=== PATIENT | female | born 1980 | race Caucasian/White ===

== ENCOUNTER 2017-02-01 06:07 | Inpatient (IN) | payer OTHER ==
--- NOTE | ~2017-02-01 | HP ---
History And Physical [address] [place]. [address] NAME: FRANCOISE TIDWELL : 80 STATUS : ADM IN [facility]#: [id number] AGE: 36 ADM/REG DATE : 02/01/17 MR#: [id number] REPORT SERV DATE: 02/01/17 DICTATED BY: DATE: REPORT STATUS : Draft TRANSCRIBED BY: MODL DATE: 02/01/17 DATE OF ADMISSION: 02/01/2017 CHIEF COMPLAINT: Abdominal pain. HISTORY OF PRESENT ILLNESS: Ms. Tidwell is a pleasant 36-year-old female who developed severe, sharp left upper quadrant abdominal pain four days ago with associated nausea and vomiting. The pain is sharp, constant, and radiates from her left upper quadrant of the abdomen to her back. The patient has a significant medical history of multiple UTIs in the past; however, she reports not having UTI in at least a year. She does not have symptoms of frequency, urgency, dysuria, hematuria. Now, she does report having a fever with a temp max of 102. Now, she has been taking Tylenol which has helped with her fevers. Now, she has been unable to take p.o. in the last several days due to nausea and vomiting including her antidiabetic medications. She is a dsh-hdjzhgh-punbwqfbk diabetic. She takes Victoza and metformin at home. Her blood glucose was 335 at [facility] prior to transfer. She had a CT of the abdomen and pelvis at [facility], which demonstrated enlargement of the left kidney with asymmetric enhancement of the superior pole of the left with associated inflammatory changes suggestive of underlying pyelonephritis with suspicions for probable intrarenal abscess/lobar nephronia. This area measures approximately 6 cm. MEDICAL HISTORY: Includes noninsulin-dependent diabetes mellitus, depression, and hypertension. SURGICAL HISTORY: Includes L4-L5 diskectomy in 2006. SOCIAL HISTORY: The patient denies tobacco, alcohol, and illicit drug use. 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 She is and lives with her spouse and has 3 children, 20, 18, 14, and a 2-year-old granddaughter. ALLERGIES: THE PATIENT HAS NO KNOWN DRUG ALLERGIES. HOME MEDICATIONS: Include: 1. Benazepril 10 mg daily. 2. Effexor XR 75 mg b.i.d. 3. Gabapentin 300 mg t.i.d. 4. Metformin 500 mg p.o. daily. 5. Victoza 18 mg/3 mL one unit subcu daily. 6. Vistaril 50 mg p.o. at bedtime. REVIEW OF SYSTEMS: A 10-point review of systems was performed. All pertinent positives are noted above in the HPI. Otherwise, negative. PHYSICAL EXAMINATION: GENERAL: The patient reports fevers and chills at home with a temp max of 102 and at this History And Physical [address] [address] NAME: FRANCOISE TIDWELL : 80 STATUS : ADM IN PAT#: [id number] AGE: 36 ADM/REG DATE : 02/01/17 MR#: [id number] REPORT SERV DATE: 02/01/17 DICTATED BY: DATE: REPORT STATUS : Draft TRANSCRIBED BY: MODL DATE: 02/01/17 time, she appears nontoxic. However, she is in significant pain. NEURO: She is alert and oriented x4. Cranial nerves 2 through 12 are grossly intact. Able to follow commands. CV: S1 and S2 present. Regular rate and rhythm. No murmurs, rubs, or thrills noted. PMI is nondisplaced. LUNGS: Clear throughout all lung valenzuela. Respirations are within normal limits. ABDOMEN: Soft, tender in the left upper quadrant to palpation. Bowel sounds are present. The patient reports last bowel movement yesterday which was formed. : No costovertebral angle tenderness was noted surprisingly. EXTREMITIES: Peripheral pulses present. Edema is absent. ASSESSMENT AND PLAN: 1. Left renal abscess/pyelonephritis. As mentioned above on the CT scan performed at [facility], it was noted the patient had a possible abscess. We will consult Interventional Radiology for review of images and possible drainage of the said abscess. She was given ceftriaxone at [facility]. Upon arrival here, my colleague Dr. Wong started the patient on cefepime IV, which I will continue considering the patient has a history of multiple urinary tract infections with Escherichia coli and some drug resistance. 2. Abdominal pain. I will order p.r.n. pain medications including Dilaudid IV. The patient is unable to tolerate p.o. due to nausea and vomiting. 3. Noninsulin-dependent diabetes mellitus. We will monitor blood sugars q.a.c. and at bedtime. I will place the patient on sliding scale level 2, and I will hold her metformin at this time. I will continue her Victoza. 4. Nausea and vomiting. Aborted p.r.n. medications as the Phenergan and Zofran are ineffective. 5. Sepsis due to pyelonephritis/left renal abscess. Her white blood cell count at [facility] was 18.8, is down to 8 now after several doses of antibiotics. They did perform blood cultures at [facility]; I will repeat them here. I will also get a procalcitonin level. Patient's lactate was 8.9. CO2 was 15. Anion gap of 24.5. Her UA was negative for a urinary tract infection surprisingly. If Interventional Radiology does perform drainage of the left renal abscess, we will culture the drainage to narrow antibiotics if needed. Also, I will follow blood cultures for optimal antibiotic management. 6. Hypertension. Patient's blood pressure was 132/73; we will watch this. She is not currently on medications at home for this. 7. Depression. I will continue her Effexor p.o. The patient's primary care provider is Annie Stearns, nurse practitioner, at [facility]. After discharge, we will send records to her. BREANNA/ADIN Dexter Brewer NP History And Physical [address] [address] NAME: FRANCOISE TIDWELL : 80 STATUS : ADM IN PAT#: [id number] AGE: 36 ADM/REG DATE : 02/01/17 MR#: [id number] REPORT SERV DATE: 02/01/17 DICTATED BY: DATE: REPORT STATUS : Draft TRANSCRIBED BY: ADIN DATE: 02/01/17 / [id number] CC: MD SPENCER Pierce RUTH Hany A. Naggar, MD
--- NOTE | ~2017-02-01 | DS ---
Discharge Summary [facility] [address] [place]. [address] NAME: FRANCOISE CLEMENS : 80 STATUS : DIS IN PAT#: [id number] AGE: 36 ADM/REG DATE : 02/01/17 MR#: [id number] REPORT SERV DATE: 02/06/17 DICTATED BY: FRANK BRANNON DATE: 02/05/17 REPORT STATUS : Draft TRANSCRIBED BY: MODL DATE: 02/05/17 ADMISSION DATE: 02/01/2017 DISCHARGE DATE: 02/05/2017 The patient is a 36-year-old female with a history of hypertension and diabetes who presented to the hospital with abdominal pain. For further details, please refer to H and P dictated on 02/01/2017. HOSPITAL COURSE: The patient initially presented to [facility] where CT of the abdomen and pelvis was performed. There was concern for pyelonephritis versus renal abscess. Given this finding, the patient was transferred to [facility] for further management. Upon presentation to the hospital, the patient met sepsis criteria, its likely source being her kidneys. She was empirically started on broad-spectrum antibiotics and the medications under Hospitalist Service for further management. Her pain was controlled with medication. The patient has responded well to therapy. Her sepsis eventually resolved, and her pain progressively improved. Her medication was deescalated to p.o. Levaquin which the patient has tolerated with normalization of her white blood cell count. Also, while in the hospital, the patient was noted to have hypertension. Given her history of diabetes, she was placed on an STIVEN inhibitor with good blood pressure control. For her diabetes, her A1c was checked which was noted to be 10.8, so oral anti-hyperglycemics were discontinued. The patient was started with insulin both basal and short-acting. Her insulin regimen has been up titrated with some improvement, however, adequate blood glucose control has not been achieved. Given that the patient is in the hospital, it is unclear if the patient is obtaining meals from outside which could be the reason why her blood sugar is not well controlled at this time. Given that she is new to insulin, we will hold off on increasing insulin dose at this point. Consult Diabetic Education to assist in terms of diet and lifestyle modification and assist in conjunction with medication management. I will have the patient follow up with her primary care physician for further titration in insulin. Also, back to her pyelonephritis, given the concern for abscess that was noted at imaging at [facility], after consultation with Radiology, it was agreed that CT abdomen and pelvis be obtained again to ensure that there was no abscess that needed to be drained. The patient is status post repeat CT scan with no abscesses noted. Given her hemodynamic stability with resolution of her presenting complaints, the patient will be discharged today after diabetic education. Plan has been discussed with the patient, who voices understanding and is agreeable with this plan. Given the patient's resolution of presenting complaint and hemodynamic stability, the patient will be discharged to follow up primary care physician. Plan has been discussed with the patient, who voices understanding and is agreeable with this plan. DISCHARGE DIAGNOSES: 1. Pyelonephritis. 2. Diabetes type 2. 3. Hypertension. 4. Hypokalemia. 5. Sepsis. 6. Obesity. Discharge Summary [address] [address] NAME: FRANCOISE CLEMENS : 80 STATUS : DIS IN [facility]#: [id number] AGE: 36 ADM/REG DATE : 02/01/17 MR#: [id number] REPORT SERV DATE: 02/06/17 DICTATED BY: FRANK BRANNON DATE: 02/05/17 REPORT STATUS : Draft TRANSCRIBED BY: ADIN DATE: 02/05/17 7. Depression. DISCHARGE EXAMINATION: VITAL SIGNS: Blood pressure 128/80 with a pulse of 85, respiration 18, O2 saturation 97% on room air. GENERAL: The patient lying in bed, in no acute distress. Appears stated age. HEENT: Normocephalic, atraumatic. Extraocular motors intact. Moist oral mucosa. Pupils round and reactive to light and accommodation. Anicteric sclerae. No conjunctival injection. NECK: Trachea midline and symmetric. No JVD noted. No thyromegaly present. No lymphadenopathy noted. CHEST: No scars noted. Nontender to palpation. CARDIOVASCULAR: Regular rate and rhythm. S1, S2. No murmurs, rubs, or gallops. LUNGS: Clear to auscultation bilaterally. No wheezing, rales, or rhonchi. ABDOMEN: Obese. Positive bowel sounds. Mild tenderness noted on the left lower quadrant. Nondistended. EXTREMITIES: No cyanosis, no clubbing, no edema. NEUROLOGIC: Alert and oriented x3. No focal deficits appreciated. DISCHARGE MEDICATIONS: Gabapentin 300 mg p.o. three times a day, NovoLog 12 units subcu premeals b.i.d., lisinopril 20 mg p.o. daily, Effexor 75 mg p.o. with breakfast, hydroxyzine 50 mg to 100 mg p.o. at bedtime, Levemir 30 units subcu twice a day. IMAGING: CT abdomen and pelvis without contrast. Impression: This noncontrast CT scan findings are again consistent with underlying pyelonephritis. There is also a nonobstructing kidney stone. There are no large changes on this noncontrasted study to suggest any evidence for a drainable intraparenchymal or perirenal abscess at this time. DISPOSITION: The patient will be discharged to home to follow up with primary care physician in five to seven days. ACTIVITY: As tolerated. DIET: Diabetic diet. Greater than 30 minutes was spent coordinating care, discussing care with nurse, providing counseling, dictation of note, medication reconciliation, and writing prescription. PATRICIA/ADIN Frank Brannon MD / [id number] CC: Discharge Summary [address] [address] NAME: FRANCOISE CLEMENS : 80 STATUS : DIS IN PAT#: [id number] AGE: 36 ADM/REG DATE : 02/01/17 MR#: [id number] REPORT SERV DATE: 02/06/17 DICTATED BY: FRANK BRANNON DATE: 02/05/17 REPORT STATUS : Draft TRANSCRIBED BY: MODL DATE: 02/05/17 MD SPENCER Lopes RUTH
[~2017-02-01 06:07] MED LIST: CIP5; CIP5 PO; DIL2TAB PO; ENDOCET1 TAB PO; FLOMAX4 PO; GLUCOPHXR7 PO; GLUCPH PO; LEXAPRO20 PO; LIPITOR10 PO; LOTE10 PO; LOTE20 PO; MINIPRESS 1 MG C1 MG PO; NORCO1 TA1 PO; PARAFON FORTE500 MG OR; PR25; ZOCOR20 PO
[2017-02-01 06:47] LABS: BASOPHILS 0.4 %; BASOPHILS ABSOLUTE 0.03 10/3/uL (0.0-0.16); EOSINOPHILS 1.7 %; EOSINOPHILS ABSOLUTE 0.14 10/3/uL (0.0-0.53); HEMATOCRIT 37.5 % (36.0-48.0); HEMOGLOBIN 12.9 g/dL (12.0-16.0); IMMATURE GRANULOCYTES 0.4 %; IMMATURE GRANULOCYTES ABSOLUTE 0.03 10/3/uL (0.0-0.11); LYMPHOCYTES 34.4 %; LYMPHOCYTES ABSOLUTE 2.76 10/3/uL (0.67-4.30); MEAN CORPUS HGB CONC 34.4 g/dL (32.0-36.0); MEAN CORPUSCULAR HEMOGLOB 32.4 pg (26.0-34.0); MEAN PLATELET VOLUME 10.8 fL (9.2-13.0); MONOCYTES 8.4 %; MONOCYTES ABSOLUTE 0.67 10/3/uL (0.21-1.20); NEUTROPHILS 54.7 %; NEUTROPHILS ABSOLUTE 4.39 10/3/uL (2.02-8.40); RBC DISTRIBUTION WIDTH 12.5 % (12.0-16.0); RED CELL COUNT 3.98 10/6/uL (4.0-5.6)
[2017-02-01 06:50] LABS: MANUAL DIFF NO %; MEAN CORPUSCULAR VOLUME 94.2 fL (80-100); PLATELET COUNT 187 10/3/uL (150-400)
[2017-02-01 07:39] LABS: ALKALINE PHOSPHATASE 128 U/L (45-117); BUN (BLOOD UREA NITROGEN) 10 MG/DL (6-23); CALCIUM, SERUM 9.2 MG/DL (8.5-10.4); CHLORIDE, SERUM 106 MMOL/L (96-112); CO2 (CARBON DIOXIDE) 16 MMOL/L (24-34); CREATININE 0.82 MG/DL (0.55-1.02); GFR AFRICAN AMERICAN 107 ML/MIN (>=60); GFR NON AFRICAN AMERICAN 92 ML/MIN (>=60); GLUCOSE, SERUM 280 MG/DL (60-99); POTASSIUM, SERUM 3.8 MMOL/L (3.5-5.3); SGOT(AST) 14 U/L (5-40); SGPT(ALT) 21 U/L (5-65); SODIUM, SERUM 137 MMOL/L (135-148); TOTAL BILIRUBIN 0.4 MG/DL (0-1.2); TOTAL PROTEIN 8.1 G/DL (6.0-8.5)
[2017-02-01 08:01] LABS: A/G RATIO 0.5 (0.7-1.9); ALBUMIN 2.8 G/DL (3.5-5.0); GLOBULIN 5.3 G/DL (2.5-4.1)
[2017-02-01] MEDS ORDERED: EFFEXXR75 PO (11:07)
[2017-02-01] MEDS ORDERED: GLUCPH PO (11:07)
[2017-02-01] MEDS ORDERED: LOTE10 PO (11:07)
[2017-02-01] MEDS ORDERED: VIST50 PO (11:07)
[2017-02-01] MEDS ORDERED: NEUR300 PO (11:07)
[2017-02-01] MEDS ORDERED: ACET500CAP PO (11:08)
[2017-02-01] MEDS ORDERED: VICTOZA18 MG/3 ML SC (11:08)
[2017-02-01 11:28] LABS: INTERNATIONAL NORMAL RATI 1.4 UNITS (-); PARTIAL THROMBO TIME 38.2 SEC (22.5-37.2); PROTIME (NOT ORD) 16.6 SEC (12.0-14.5)
[2017-02-01 11:34] LABS: PHOSPHORUS, SERUM 2.5 MG/DL (2.5-4.5)
[2017-02-01 12:00] LABS: PROCALCITONIN 0.98 ng/mL (<0.5)
[2017-02-01 19:01] LABS: ASCORBIC ACID (UR NOT ORDER) NEG (NEG); BILIRUBIN, URINE NEGATIVE (NEG); KETONE, URINE 80 MG/DL (NEG); LEUKOCYTE ESTERASE(NOT OR TRACE (NEG); WBC (NOT ORDERED) (RFLEX) 5 (0-5)
[2017-02-02 05:52] LABS: BASOPHILS 0.3 %; BASOPHILS ABSOLUTE 0.04 10/3/uL (0.0-0.16); EOSINOPHILS 0.2 %; EOSINOPHILS ABSOLUTE 0.03 10/3/uL (0.0-0.53); HEMOGLOBIN 11.1 g/dL (12.0-16.0); IMMATURE GRANULOCYTES 0.9 %; IMMATURE GRANULOCYTES ABSOLUTE 0.12 10/3/uL (0.0-0.11); LYMPHOCYTES 15.6 %; LYMPHOCYTES ABSOLUTE 2.13 10/3/uL (0.67-4.30); MEAN CORPUS HGB CONC 33.3 g/dL (32.0-36.0); MEAN CORPUSCULAR HEMOGLOB 30.3 pg (26.0-34.0); MEAN PLATELET VOLUME 9.5 fL (9.2-13.0); MONOCYTES ABSOLUTE 1.78 10/3/uL (0.21-1.20); NEUTROPHILS ABSOLUTE 9.55 10/3/uL (2.02-8.40); RBC DISTRIBUTION WIDTH 12.1 % (12.0-16.0); RED CELL COUNT 3.66 10/6/uL (4.0-5.6)
[2017-02-02 06:00] LABS: HEMATOCRIT 33.3 % (36.0-48.0); WHITE BLOOD CELLS 13.7 10/3/uL (4.5-10.5)
[2017-02-02 06:01] LABS: MANUAL DIFF NO %; PLATELET COUNT 365 10/3/uL (150-400)
[2017-02-02 06:11] LABS: CALCIUM, SERUM 8.5 MG/DL (8.5-10.4); CHLORIDE, SERUM 105 MMOL/L (96-112); CREATININE 0.71 MG/DL (0.55-1.02); GFR AFRICAN AMERICAN 127 ML/MIN (>=60); GFR NON AFRICAN AMERICAN 110 ML/MIN (>=60); GLUCOSE, SERUM 265 MG/DL (60-99); PHOSPHORUS, SERUM 1.8 MG/DL (2.5-4.5); POTASSIUM, SERUM 3.7 MMOL/L (3.5-5.3); SODIUM, SERUM 137 MMOL/L (135-148)
[2017-02-02 06:21] LABS: BUN (BLOOD UREA NITROGEN) 6 MG/DL (6-23); CO2 (CARBON DIOXIDE) 16 MMOL/L (24-34)
[2017-02-03 06:02] LABS: A/G RATIO 0.4 (0.7-1.9); ALKALINE PHOSPHATASE 131 U/L (45-117); BUN (BLOOD UREA NITROGEN) 5 MG/DL (6-23); CALCIUM, SERUM 8.8 MG/DL (8.5-10.4); CHLORIDE, SERUM 102 MMOL/L (96-112); CREATININE 0.68 MG/DL (0.55-1.02); GFR AFRICAN AMERICAN 130 ML/MIN (>=60); GFR NON AFRICAN AMERICAN 113 ML/MIN (>=60); GLOBULIN 4.9 G/DL (2.5-4.1); GLUCOSE, SERUM 284 MG/DL (60-99); POTASSIUM, SERUM 3.3 MMOL/L (3.5-5.3); SGOT(AST) 34 U/L (5-40); SGPT(ALT) 40 U/L (5-65); SODIUM, SERUM 137 MMOL/L (135-148); TOTAL BILIRUBIN 0.2 MG/DL (0-1.2); TOTAL PROTEIN 7.1 G/DL (6.0-8.5)
[2017-02-03 06:03] LABS: ALBUMIN 2.2 G/DL (3.5-5.0); BASOPHILS 0.4 %; BASOPHILS ABSOLUTE 0.04 10/3/uL (0.0-0.16); CO2 (CARBON DIOXIDE) 24 MMOL/L (24-34); EOSINOPHILS 0.9 %; HEMOGLOBIN 11.2 g/dL (12.0-16.0); IMMATURE GRANULOCYTES 2.3 %; IMMATURE GRANULOCYTES ABSOLUTE 0.25 10/3/uL (0.0-0.11); LYMPHOCYTES 26.6 %; LYMPHOCYTES ABSOLUTE 2.95 10/3/uL (0.67-4.30); MEAN CORPUS HGB CONC 33.9 g/dL (32.0-36.0); MEAN CORPUSCULAR HEMOGLOB 30.7 pg (26.0-34.0); MEAN CORPUSCULAR VOLUME 90.4 fL (80-100); MEAN PLATELET VOLUME 9.1 fL (9.2-13.0); MONOCYTES 9.4 %; MONOCYTES ABSOLUTE 1.04 10/3/uL (0.21-1.20); NEUTROPHILS 60.4 %; PHOSPHORUS, SERUM 2.5 MG/DL (2.5-4.5); PLATELET COUNT 395 10/3/uL (150-400); RBC DISTRIBUTION WIDTH 12.1 % (12.0-16.0); RED CELL COUNT 3.65 10/6/uL (4.0-5.6); WHITE BLOOD CELLS 11.1 10/3/uL (4.5-10.5)
[2017-02-03 06:06] LABS: MANUAL DIFF NO %
[2017-02-03 10:22] LABS: CHOL/HDL RATIO(NOT ORDER) 10.1 (0-5)
[2017-02-04 06:20] LABS: BASOPHILS 0.3 %; BASOPHILS ABSOLUTE 0.03 10/3/uL (0.0-0.16); EOSINOPHILS 1.3 %; EOSINOPHILS ABSOLUTE 0.12 10/3/uL (0.0-0.53); HEMATOCRIT 30.1 % (36.0-48.0); HEMOGLOBIN 10.5 g/dL (12.0-16.0); IMMATURE GRANULOCYTES 2.7 %; IMMATURE GRANULOCYTES ABSOLUTE 0.25 10/3/uL (0.0-0.11); LYMPHOCYTES 30.9 %; MEAN CORPUS HGB CONC 34.9 g/dL (32.0-36.0); MEAN CORPUSCULAR HEMOGLOB 31.1 pg (26.0-34.0); MEAN CORPUSCULAR VOLUME 89.1 fL (80-100); MEAN PLATELET VOLUME 9.1 fL (9.2-13.0); MONOCYTES 8.4 %; MONOCYTES ABSOLUTE 0.79 10/3/uL (0.21-1.20); NEUTROPHILS 56.4 %; NEUTROPHILS ABSOLUTE 5.29 10/3/uL (2.02-8.40); PLATELET COUNT 373 10/3/uL (150-400); RBC DISTRIBUTION WIDTH 12.2 % (12.0-16.0); RED CELL COUNT 3.38 10/6/uL (4.0-5.6); WHITE BLOOD CELLS 9.4 10/3/uL (4.5-10.5)
[2017-02-04 06:26] LABS: MANUAL DIFF NO %
[2017-02-04 06:33] LABS: A/G RATIO 0.4 (0.7-1.9); ALKALINE PHOSPHATASE 121 U/L (45-117); BUN (BLOOD UREA NITROGEN) 4 MG/DL (6-23); CALCIUM, SERUM 8.6 MG/DL (8.5-10.4); CHLORIDE, SERUM 103 MMOL/L (96-112); CREATININE 0.66 MG/DL (0.55-1.02); GFR AFRICAN AMERICAN 132 ML/MIN (>=60); GFR NON AFRICAN AMERICAN 114 ML/MIN (>=60); GLOBULIN 4.5 G/DL (2.5-4.1); GLUCOSE, SERUM 228 MG/DL (60-99); SGOT(AST) 23 U/L (5-40); SGPT(ALT) 41 U/L (5-65); SODIUM, SERUM 140 MMOL/L (135-148); TOTAL BILIRUBIN 0.3 MG/DL (0-1.2); TOTAL PROTEIN 6.5 G/DL (6.0-8.5)
[2017-02-04 06:41] LABS: CO2 (CARBON DIOXIDE) 30 MMOL/L (24-34); PHOSPHORUS, SERUM 3.4 MG/DL (2.5-4.5)
[2017-02-05 07:09] LABS: HEMATOCRIT 32.3 % (36.0-48.0); MEAN CORPUS HGB CONC 34.1 g/dL (32.0-36.0); MEAN CORPUSCULAR HEMOGLOB 30.6 pg (26.0-34.0); MEAN CORPUSCULAR VOLUME 89.7 fL (80-100); MEAN PLATELET VOLUME 9.5 fL (9.2-13.0); PLATELET COUNT 412 10/3/uL (150-400); RBC DISTRIBUTION WIDTH 12.3 % (12.0-16.0); WHITE BLOOD CELLS 8.8 10/3/uL (4.5-10.5)
[2017-02-05 07:10] LABS: MANUAL DIFF YES %
[2017-02-05 07:35] LABS: BAND NEUTROPHILS 1 %; IMMATURE GRANS ABSOLUTE (CALC) 0.26 10/3/uL (0.0-0.11); LYMPHOCYTES 34 %; LYMPHOCYTES ABSOLUTE (CALC) 2.99 10/3/uL (0.67-4.30); METAMYELOCYTES 3 %; MONOCYTES 8 %; NEUTROPHILS ABSOLUTE (CALC) 4.84 10/3/uL (2.02-8.40); PLATELET ESTIMATE SLT INC (ADEQUATE); RBC MORPHOLOGY NORM (NORMAL); SEGMENTED NEUTROPHIL (0) 54 %; TOTAL NUCLEATED CELLS 100
[2017-02-05 09:08] LABS: A/G RATIO 0.5 (0.7-1.9); ALBUMIN 2.1 G/DL (3.5-5.0); ALKALINE PHOSPHATASE 138 U/L (45-117); BUN (BLOOD UREA NITROGEN) 4 MG/DL (6-23); CALCIUM, SERUM 8.9 MG/DL (8.5-10.4); CHLORIDE, SERUM 102 MMOL/L (96-112); CO2 (CARBON DIOXIDE) 29 MMOL/L (24-34); CREATININE 0.59 MG/DL (0.55-1.02); GFR AFRICAN AMERICAN 137 ML/MIN (>=60); GFR NON AFRICAN AMERICAN 118 ML/MIN (>=60); GLOBULIN 4.6 G/DL (2.5-4.1); GLUCOSE, SERUM 279 MG/DL (60-99); PHOSPHORUS, SERUM 3.3 MG/DL (2.5-4.5); POTASSIUM, SERUM 3.7 MMOL/L (3.5-5.3); SGOT(AST) 12 U/L (5-40); SGPT(ALT) 33 U/L (5-65); SODIUM, SERUM 137 MMOL/L (135-148); TOTAL BILIRUBIN 0.2 MG/DL (0-1.2); TOTAL PROTEIN 6.7 G/DL (6.0-8.5)
[2017-02-05] MEDS ORDERED: LEVAQUIN750 MG PO (12:12)
[2017-02-05] MEDS ORDERED: LEVEMIR SC (12:13)
[2017-02-05] MEDS ORDERED: NOVOLOG SC (12:14)
[2017-02-05] MEDS ORDERED: ZESTRIL20 MG PO (12:15)
== END 2017-02-05 16:11 | disposition home or self-care (01) | DRG 871 ==
LOC: 5SO 06:07
PROVIDERS: Hospitalist; Internal Medicine
DX: A41.9 Sepsis, unspecified organism (principal); N15.1 Renal and perinephric abscess; N10 Acute pyelonephritis; E11.9 Type 2 diabetes mellitus without complications; F32.9 Major depressive disorder, single episode, unspecified; I10 Essential (primary) hypertension; Z98.890 Other specified postprocedural states; Z79.899 Other long term (current) drug therapy; E87.6 Hypokalemia; E66.9 Obesity, unspecified; Z68.39 Body mass index [BMI] 39.0-39.9, adult; Z79.84 Long term (current) use of oral hypoglycemic drugs
CPT/HCPCS: 74176; 80048; 80053; 80061; 81001; 82962; 83036; 83605; 83735; 84100; 84132; 84145; 85025; 85610; 85730; 87040; A9270-GY; J0692; J1170; J3475